=== PATIENT | female | born 1990 | race Caucasian/White ===

== ENCOUNTER → 2023-12-05 15:04 | Outpatient (REF) | payer BC, SELFPAY ==
[2023-12-05 15:39] LABS: % Basophils 0.4 % (0-2); % Eosinophils 1.4 % (0-6); % Immature Granulocytes 0.9 % (0-0.5); % Lymphocytes 14.2 % (20.5-51.1); % Monocytes 8.5 % (1.7-9.3); % Neutrophils 74.6 % (42.2-75.2); Absolute Eosinophils 0.1 10^3/uL (0-0.7); Absolute Immature Granulocytes 0.1 10^3/uL (0-0.05); Absolute Lymphocytes 1.4 10^3/uL (1.2-3.4); Absolute Monocytes 0.9 10^3/uL (0.1-0.6); Absolute Neutrophils 7.5 10^3/uL (1.4-6.5); Hematocrit 35.3 % (37.0-47.0); Hemoglobin 12.1 g/dL (12.0-16.0); Mean Corp Hgb Conc. 34.3 g/dL (33.0-37.0); Mean Corpuscular Hgb 30.5 pg (27.0-31.0); Mean Corpuscular Volume 88.9 fL (81.0-99.0); Mean Platelet Volume 10.1 fL (7.4-10.4); Nucleated Red Blood Cells % 0 %; Platelet Count 270 10^3/uL (130-400); Red Blood Cell Count 3.97 10^6/uL (4.20-5.40); Red Cell Dist. Width 13.6 % (11.5-14.5)
[2023-12-05 15:41] LABS: Urine Albumin Negative (Neg - Trace); Urine Bilirubin Negative (Negative); Urine Character Clear (Clear); Urine Color Yellow; Urine Glucose Negative (Negative); Urine Ketone Negative (Negative); Urine Leukocyte Negative (Negative); Urine Nitrite Negative (Negative); Urine Occult Blood Negative (Negative); Urine Urobilinogen Negative (Neg - 1+)
[2023-12-05 15:57] LABS: ALT (SGPT) 25 U/L (0-35); AST (SGOT) 29 U/L (14-36); Albumin 3.5 g/dl (3.5-5.0); Alkaline Phosphatase 122 U/L (38-126); Blood Urea Nitrogen 11 mg/dl (7-17); Calcium 9.5 mg/dl (8.4-10.2); Carbon Dioxide 22 mmol/L (22-30); Chloride 106 mmol/L (98-107); Glucose 83 mg/dl (70-99); Potassium 4.3 mmol/L (3.5-5.1); Sodium 131 mmol/L (135-145); Total Bilirubin 0.5 mg/dl (0.2-1.3); Total Protein 6.3 g/dl (6.3-8.2); Uric Acid 4.6 mg/dl (2.5-6.2); eGFR > 60.00
[2023-12-05 16:53] LABS: Protein/creatinine Ratio 0.6; Urine Protein 12 mg/dl
== END | disposition home or self-care (01) ==
LOC: PNTC 15:04
PROVIDERS: Obstetrics & Gynecology; ATTENDING PHYSICIAN Obstetrics & Gynecology
DX: O14.90 Unspecified pre-eclampsia, unspecified trimester (principal); O98.519 Other viral diseases complicating pregnancy, unspecified trimester; E79.0 Hyperuricemia without signs of inflammatory arthritis and tophaceous disease; D64.9 Anemia, unspecified; R82.90 Unspecified abnormal findings in urine; R80.9 Proteinuria, unspecified
CPT/HCPCS: 80053; 81003; 82570; 84156; 84550; 85025; G0378

== ENCOUNTER 2024-01-04 20:14 | Observation (INO) | payer BC, SELFPAY ==
[2024-01-04 20:38] VITALS: BMI 25.0
[2024-01-04 21:16] VITALS: BP 117/68
== END 2024-01-04 21:25 | disposition home or self-care (01) ==
LOC: LDRP 20:14
PROVIDERS: ADMITTING PHYSICIAN Obstetrics & Gynecology
DX: O47.1 False labor at or after 37 completed weeks of gestation (principal); Z3A.40 40 weeks gestation of pregnancy
CPT/HCPCS: G0378

== ENCOUNTER 2024-01-05 02:44 | Inpatient (IN) | payer BC, SELFPAY ==
[2024-01-05 03:15] VITALS: BMI 25.0
[2024-01-05] MEDS: LR 1000 IV ×4 (03:15→13:25)
[2024-01-05 03:16] VITALS: BP 119/58
[2024-01-05 03:33] LABS: % Basophils 0.4 % (0-2); % Immature Granulocytes 0.6 % (0-0.5); % Lymphocytes 19.2 % (20.5-51.1); % Monocytes 7.6 % (1.7-9.3); % Neutrophils 71.2 % (42.2-75.2); Absolute Eosinophils 0.1 10^3/uL (0-0.7); Absolute Immature Granulocytes 0.1 10^3/uL (0-0.05); Absolute Monocytes 0.8 10^3/uL (0.1-0.6); Absolute Neutrophils 7.5 10^3/uL (1.4-6.5); Hematocrit 31.4 % (37.0-47.0); Hemoglobin 11.2 g/dL (12.0-16.0); Mean Corp Hgb Conc. 35.7 g/dL (33.0-37.0); Mean Corpuscular Hgb 30.4 pg (27.0-31.0); Mean Corpuscular Volume 85.1 fL (81.0-99.0); Mean Platelet Volume 10.8 fL (7.4-10.4); Nucleated Red Blood Cells % 0 %; Platelet Count 221 10^3/uL (130-400); Red Blood Cell Count 3.69 10^6/uL (4.20-5.40); Red Cell Dist. Width 14.5 % (11.5-14.5); White Blood Cell Count 10.6 10^3/uL (4.8-10.8)
[2024-01-05] MEDS: MORPHINE SULFATE 2 MG IV (04:41)
[2024-01-05] MEDS: PHENERGAN 51 MG IV (04:42)
[2024-01-05] MEDS: SUBLIMAZE 100 MCG EPIDURAL (07:26)
[2024-01-05] MEDS: FENTANYL/BUPIVACAINE 100 EPIDURAL ×2 (07:26→15:28)
[2024-01-05] MEDS: PITOCIN 30 UNITS/NSS 500 ML IV (19:00)
[2024-01-06] MEDS: MOTRIN 600 MG PO ×4 (03:32→22:12)
[2024-01-06] MEDS: TYLENOL 650 MG PO ×3 (03:32→15:47)
[2024-01-06 06:30] LABS: Hematocrit 23.7 % (37.0-47.0); Hemoglobin 8.4 g/dL (12.0-16.0)
[2024-01-06] MEDS: HYDROCORTISONE 2.5% CREAM 1 APPLIC TOPICAL ×2 (08:02→20:10)
[2024-01-06] MEDS: SENOKOT-S 1 TABLET PO (08:02)
[2024-01-06] MEDS: PRENATAL PLUS 1 TABLET PO (08:02)
[2024-01-06] MEDS: FEOSOL 325 MG PO ×2 (08:02→19:52)
[2024-01-06 13:51] VITALS: BP 102/55
[2024-01-07] MEDS: MOTRIN 600 MG PO (11:07)
[2024-01-07] MEDS: HYDROCORTISONE 2.5% CREAM 1 APPLIC TOPICAL (11:07)
[2024-01-07] MEDS: SENOKOT-S 1 TABLET PO (11:07)
[2024-01-07] MEDS: PRENATAL PLUS 1 TABLET PO (11:07)
[2024-01-07] MEDS: FEOSOL 325 MG PO (11:07)
[2024-01-07] MEDS: TYLENOL 650 MG PO (11:14)
[2024-01-08 14:19] LABS: Syphilis/T. pallidum Ab Reflex Negative (Negative)
== END 2024-01-07 16:10 | disposition home or self-care (01) | DRG 807 ==
LOC: LDRP 02:44
PROVIDERS: Obstetrics & Gynecology; ADMITTING PHYSICIAN Obstetrics & Gynecology
PROC: 0KQM0ZZ Repair Perineum Muscle, Open Approach (ICD-10-PCS; 2024-01-05)
PROC: 6A550ZT Pheresis of Cord Blood Stem Cells, Single (ICD-10-PCS; 2024-01-05)
PROC: 10E0XZZ Delivery of Products of Conception, External Approach (ICD-10-PCS; 2024-01-05)
DX: O42.02 Full-term premature rupture of membranes, onset of labor within 24 hours of rupture (principal); Z37.0 Single live birth; Z3A.40 40 weeks gestation of pregnancy; O70.1 Second degree perineal laceration during delivery; O69.1XX0 Labor and delivery complicated by cord around neck, with compression, not applicable or unspecified; O48.0 Post-term pregnancy; O90.81 Anemia of the puerperium; D64.9 Anemia, unspecified
CPT/HCPCS: 85014; 85018; 85025; 86780; 86850; 86900; 86901; 97163; 97530

== ENCOUNTER → 2024-01-23 15:01 | Outpatient (REF) | payer BC, SELFPAY | LOC: HWRAD 15:01 | PROVIDERS: ATTENDING PHYSICIAN Obstetrics & Gynecology | DX: O71.6 Obstetric damage to pelvic joints and ligaments (principal) | CPT/HCPCS: 72170 ==

== ENCOUNTER 2024-02-21 18:00 | Outpatient (RCR) | payer BC, SELFPAY | END 2024-02-21 23:59 | disposition home or self-care (01) | LOC: RPT 18:00 | PROVIDERS: ATTENDING PHYSICIAN Obstetrics & Gynecology; FAMILY PHYSICIAN Family Medicine | DX: R10.2 Pelvic and perineal pain (principal); M62.89 Other specified disorders of muscle; N39.3 Stress incontinence (female) (male); Z73.6 Limitation of activities due to disability | CPT/HCPCS: 97110; 97140; 97163; 97530 ==

== ENCOUNTER 2024-03-19 18:31 | Outpatient (RCR) | payer BC, SELFPAY | END 2024-03-19 23:59 | disposition home or self-care (01) | LOC: RPT 18:31 | PROVIDERS: ATTENDING PHYSICIAN Obstetrics & Gynecology; FAMILY PHYSICIAN Family Medicine | DX: R10.2 Pelvic and perineal pain (principal); M62.89 Other specified disorders of muscle; N39.3 Stress incontinence (female) (male); Z73.6 Limitation of activities due to disability | CPT/HCPCS: 97110; 97140; 97530 ==

== ENCOUNTER 2024-05-14 19:25 | Outpatient (RCR) | payer BC, SELFPAY | END 2024-05-14 23:59 | disposition home or self-care (01) | LOC: RPT 19:25 | PROVIDERS: ATTENDING PHYSICIAN Obstetrics & Gynecology; FAMILY PHYSICIAN Family Medicine | DX: R10.2 Pelvic and perineal pain (principal); M62.89 Other specified disorders of muscle; N39.3 Stress incontinence (female) (male); Z73.6 Limitation of activities due to disability | CPT/HCPCS: 97110; 97530 ==